=== PATIENT | female | born 1960 | race Caucasian/White ===

== ENCOUNTER 2024-06-03 12:10 | Inpatient (IN) | payer MEDICARE, OTHER ==
[~2024-06-03] VITALS: Ht 167.6 cm; Wt 89.9 kg
[2024-06-03] VITALS (14 sets, daily range): BP systolic 130–158; BP diastolic 59–96; PULSE 79–86; RESP 10–20; TEMP 97.5–98; O2SAT 93–100
[2024-06-03 13:07] LABS: BASOPHILS % (AUTO) 0.5 % (0-1); EOSINOPHILS # (AUTO) 0.4 X10'3 (0-0.9); EOSINOPHILS % (AUTO) 4.1 % (0-6); HEMATOCRIT 40.3 % (35.0-45.0); HEMOGLOBIN 13.6 g/dl (12.0-16.0); LYMPHOCYTES # (AUTO) 1.3 X10'3 (1.1-4.8); MEAN CORPUSCULAR HEMOGLOBIN 31.7 PG (27.0-31.0); MEAN CORPUSCULAR HGB CONC 33.8 g/dL (33.0-36.5); MEAN CORPUSCULAR VOLUME 93.9 FL (78-98); MEAN PLATELET VOLUME 8.2 FL (7.4-10.4); MONOCYTES # (AUTO) 0.8 X10'3 (0-0.9); MONOCYTES % (AUTO) 9.4 % (2-12); NEUTROPHILS # (AUTO) 6.3 X10'3 (1.8-7.7); PLATELET COUNT 288 X10'3 (140-440); WHITE BLOOD COUNT 8.9 X10'3 (4.5-11.0)
[2024-06-03 13:18] LABS: PROTHROMBIN TIME 10.6 SECONDS (9.0-12.0)
[2024-06-03 13:23] LABS: ALBUMIN 3.2 G/DL (3.4-5.0); ANION GAP 9 (8-16); BLOOD UREA NITROGEN 13 MG/DL (7-18); CHLORIDE 106 MMOL/L (99-107); CHOL/HDL RATIO 3.6 (0.00-4.99); CHOLESTEROL 226 MG/DL (0-200); CREATININE 0.93 MG/DL (0.40-0.90); GLUCOSE 89 MG/DL (70-104); HDL CHOLESTEROL 63 MG/DL (35-60); LDL CHOLESTEROL 145 MG/DL (50-100); SODIUM 141 MMOL/L (135-145); TOTAL CARBON DIOXIDE 26.4 MMOL/L (24-32); TRIGLYCERIDES 68 MG/DL (20-135); eCRCL 57 ML/MIN; eGFR 61 ML/MIN
[2024-06-03] MEDS ORDERED: SERT-433 PO (13:57)
[2024-06-03] MEDS ORDERED: OMEG1CAP46 PO (13:57)
[2024-06-03] MEDS ORDERED: TOP100T PO (13:57)
[2024-06-03] MEDS ORDERED: AMLO-140 PO (13:57)
[2024-06-03] MEDS ORDERED: GABA-530 PO (13:57)
[2024-06-03] MEDS ORDERED: MELA5CAP PO (13:57)
[2024-06-03] MEDS ORDERED: NORT50CA PO (13:57)
[2024-06-03] MEDS ORDERED: ZOLP6.2547 PO (13:57)
[2024-06-03] MEDS ORDERED: MULT-1133 PO (13:57)
[2024-06-03] MEDS ORDERED: CETI-194 PO (13:57)
[2024-06-03] MEDS ORDERED: UBID100C16 PO (13:57)
[2024-06-03] MEDS ORDERED: THYR30TA2 PO (13:57)
[2024-06-03] MEDS ORDERED: ROSU10TA72 PO (13:57)
[2024-06-03] MEDS ORDERED: GLUC500T12 PO (13:57)
[2024-06-03] MEDS ORDERED: iohexol 350MG/ML 100ml bottle IV ONE ×2 (14:01→14:43)
[2024-06-03] MEDS ORDERED: heparin 1,000unit/ml 10ml vial 10 ML ONE (14:01)
[2024-06-03] MEDS ORDERED: fentaNYL/PF 50MCG/1 ML 2ML syringe ONE (14:01)
[2024-06-03] MEDS ORDERED: verapamil 2.5 mg/ml inj IV ONE (14:01)
[2024-06-03] MEDS ORDERED: LIDOcaine 1% (10mg/ml) 2ml vial ONE (14:01)
[2024-06-03] MEDS ORDERED: midazolam 1 mg/ML 2ml injection ONE (14:01)
[2024-06-03] MEDS: LORazepam 0.5 MG tablet PO PRN (14:04)
[2024-06-03] MEDS: normal saline 1,000 ML IV SCH (14:04)
[2024-06-03] MEDS: diphenhydrAMINE 25mg capsule PO PRN (14:04)
[2024-06-03] MEDS: potassium chloride 10mEq ER tablet PO SCH (14:06)
[2024-06-03] MEDS ORDERED: nitroGLYCERIN 500mcg/5mL D5W 5 ML IV ONE (14:09)
[2024-06-03] MEDS ORDERED: OXAZEpam 15mg capsule PO PRN (15:35)
[2024-06-03] MEDS ORDERED: proCHLORperazine 10 MG/2 ml inj IV PRN (15:35)
[2024-06-03] MEDS ORDERED: ondansetron/PF 4mg/2ml inj IV PRN (15:35)
[2024-06-03] MEDS ORDERED: potassium Cl 20mEq/100mL bag 100 ML IV PRN (16:35)
[2024-06-03] MEDS ORDERED: ondansetron 4mg rapidly disintigrating tab PO PRN (16:35)
[2024-06-03] MEDS ORDERED: magnesium sulf-water 4G/100mL 100 ML IV PRN (16:35)
[2024-06-03] MEDS ORDERED: potassium CL 10mEq/100ml bag 100 ML IV PRN (16:35)
[2024-06-03] MEDS ORDERED: magnesium sulf-water 2g/50mL 50 ML IV PRN (16:35)
[2024-06-03] MEDS ORDERED: diphenhydrAMINE 25mg capsule PO PRN (16:35)
[2024-06-03] MEDS ORDERED: potassium Cl 40MEQ/270ML bag 250 ML IV PRN (16:35)
[2024-06-03] MEDS ORDERED: potassium Cl 20 mEq SR tablet PO PRN (16:35)
[2024-06-03] MEDS ORDERED: potassium Cl 40MEQ/1/2NS 520ml 520 ML IV PRN (16:35)
[2024-06-03 19:01] LABS: HEMOGLOBIN A1C 5.5 % (4.5-6.2)
[2024-06-03] MEDS ORDERED: non-formulary drug (Zolpidem Tartrate 1 TAB) PO PRN (19:55)
[2024-06-03] MEDS ORDERED: topiramate 100mg tablet PO SCH (20:00)
[2024-06-03 20:17] LABS: ABG HCO3 19.3 mmol/L (22.0-26.0); ABG OXYGEN SATURATION 96.7 % (92-98.5); ABG PCO2 (T) 30.6 mmHg (32.0-45.0); ABG PH (T) 7.418 (7.350-7.450); ABG PO2 (T) 84.9 mmHg (75.0-100.0); ALLEN'S TEST Modified; FCOHb 0.7 % (0.5-1.5); FHHb 3.3 % (0.0-5.0); FMetHb 0.3 % (0.0-1.5); FO2Hb 95.7 % (94-97); MODE ROOM AIR; TOTAL HEMOGLOBIN 13.9 G/dl (12.0-16.0)
[2024-06-03] MEDS ORDERED: non-formulary drug (Melatonin 1 CAP) PO SCH (21:00)
[2024-06-03] MEDS ORDERED: NORTRIPTYLINE HCL PO SCH (21:00)
[2024-06-03 21:18] LABS: APTT 26 SECONDS (22-32); PROTHROMBIN TIME 10.3 SECONDS (9.0-12.0)
[2024-06-03 21:26] LABS: BILIRUBIN,URINE NEGATIVE (Neg); CLARITY,URINE SLIGHTLY CLOUDY (Clear); COLOR,URINE YELLOW (Yellow); GLUCOSE, URINE NEGATIVE (Neg); KETONES,URINE NEGATIVE (Neg); LEUKOCYTE ESTERASE ,URINE NEGATIVE (Neg); NITRITES, URINE NEGATIVE (Neg); OCCULT BLOOD,URINE SMALL (Neg); PROTEIN,URINE NEGATIVE (Neg); UROBILINOGEN,URINE 0.2 E.U/dL (0.2-1.0)
[2024-06-03 21:30] LABS: UA COLLECTION TYPE NON-SPECIFIED
[2024-06-03 21:31] LABS: SQUAMOUS EPITHELIAL CELL,UR MODERATE /LPF (FEW)
[2024-06-03 21:32] LABS: BACTERIA,URINE FEW /HPF (Neg); TRANSITIONAL EPI CELLS,URINE FEW /HPF
[2024-06-03 21:33] LABS: WBC,URINE 0-4 /HPF (0-4)
[2024-06-03] MEDS: atorvastatin 20mg tablet PO SCH (23:22)
[2024-06-03] MEDS: mupirocin 2% nasal ointment 1gm UD NS SCH (23:22)
[2024-06-03] MEDS: sod chloride 0.9% 10ml flush syringe IV SCH (23:29)
[2024-06-03] MEDS: MESSAGE TO NURSING PO ONE (23:29)
[2024-06-04] VITALS (21 sets, daily range): BP systolic 98–158; BP diastolic 52–78; PULSE 80–93; RESP 14–30; TEMP 98; O2SAT 92–100
[2024-06-04] MEDS ORDERED: gabapentin 100mg capsule PO SCH
[2024-06-04] MEDS ORDERED: dextrose 50%-water 50ml dispensing syringe IV PRN ×2 (05:35→16:15)
[2024-06-04] MEDS ORDERED: insulin glargine (Lantus) pen - multi-dose SQ PRN ×2 (05:35→16:15)
[2024-06-04] MEDS ORDERED: Insulin Reg/NS 100units/100mL 100 ML IV SCH (05:35)
[2024-06-04] MEDS: cefazolin 2gm/D5W 100mL 100 ML IV ONE (05:38)
[2024-06-04] MEDS: ceFAZolin 1000mg inj ONE (06:13)
[2024-06-04] MEDS: heparin 10,000 units/1 ML INJ ONE (06:14)
[2024-06-04] MEDS: BUPIVAcaine/PF 2.5mg/ml (0.25%) 10ml vial ONE (06:14)
[2024-06-04] MEDS: BUPIVACAINE liposomal/PF 13.3 MG/ML vial IM ONE (06:14)
[2024-06-04 06:21] LABS: BASOPHILS # (AUTO) 0.1 X10'3 (0-0.2); BASOPHILS % (AUTO) 0.7 % (0-1); EOSINOPHILS # (AUTO) 0.4 X10'3 (0-0.9); EOSINOPHILS % (AUTO) 4.3 % (0-6); HEMATOCRIT 40.1 % (35.0-45.0); HEMOGLOBIN 13.4 g/dl (12.0-16.0); LYMPHOCYTES # (AUTO) 1.8 X10'3 (1.1-4.8); LYMPHOCYTES % (AUTO) 19.3 % (21-51); MEAN CORPUSCULAR HEMOGLOBIN 31.4 PG (27.0-31.0); MEAN CORPUSCULAR HGB CONC 33.3 g/dL (33.0-36.5); MEAN CORPUSCULAR VOLUME 94.3 FL (78-98); MEAN PLATELET VOLUME 8.2 FL (7.4-10.4); MONOCYTES # (AUTO) 0.8 X10'3 (0-0.9); NEUTROPHILS # (AUTO) 6.1 X10'3 (1.8-7.7); NEUTROPHILS % (AUTO) 66.7 % (42-75); PLATELET COUNT 272 X10'3 (140-440); RED BLOOD COUNT 4.25 X10'6 (4.20-5.60); WHITE BLOOD COUNT 9.2 X10'3 (4.5-11.0)
[2024-06-04 06:26] LABS: ALBUMIN 3.1 G/DL (3.4-5.0); ANION GAP 12 (8-16); BLOOD UREA NITROGEN 12 MG/DL (7-18); CALCIUM 8.7 MG/DL (8.5-10.1); CHLORIDE 107 MMOL/L (99-107); GLUCOSE 94 MG/DL (70-104); POTASSIUM 3.1 MMOL/L (3.5-5.1); SODIUM 141 MMOL/L (135-145); TOTAL CARBON DIOXIDE 21.7 MMOL/L (24-32); eCRCL 67 ML/MIN; eGFR 72 ML/MIN
[2024-06-04 07:23] LABS: PROTHROMBIN TIME 10.3 SECONDS (9.0-12.0)
[2024-06-04] MEDS: LORazepam 2 mg/ml vial IV ONE (07:54)
[2024-06-04] MEDS ORDERED: UBIDECARENONE 400 MG PO SCH (08:00)
[2024-06-04] MEDS ORDERED: thyroid, pork 30mg tablet PO SCH (08:00)
[2024-06-04] MEDS: BUPIVAcaine/PF 2.5mg/ml (0.25%) 10ml vial IJ ONE (08:00)
[2024-06-04] MEDS ORDERED: cetirizine 10mg tablet PO SCH (08:00)
[2024-06-04] MEDS ORDERED: LUTEIN PO SCH (08:00)
[2024-06-04] MEDS ORDERED: sertraline 50mg tablet PO SCH (08:00)
[2024-06-04] MEDS ORDERED: [UNRECOGNIZED DRUG - OTHER] PO SCH (08:00)
[2024-06-04] MEDS ORDERED: MULTIVITS MIN PO SCH (08:00)
[2024-06-04] MEDS ORDERED: non-formulary drug (Glucosamine HCl 1 TAB) PO SCH (08:00)
[2024-06-04] MEDS ORDERED: IRON PO SCH (08:00)
[2024-06-04] MEDS ORDERED: OMEGA-3/DHA/EPA/FISH OIL 1 EACH CAPSULE.DR PO SCH (08:00)
[2024-06-04] MEDS ORDERED: non-formulary drug (Amlodipine Besylate/Benazepril 5/40 MG* (Amlodipine-Benazepril 5/40 MG PO SCH (08:00)
[2024-06-04] MEDS ORDERED: potassium Cl 2 mEq/ml inj IV ONE (08:04)
[2024-06-04] MEDS ORDERED: sevoflurane 250ml liquid IH ONE (08:04)
[2024-06-04] MEDS ORDERED: MIDAZolam 1 MG/ML 5ML VIAL ONE (08:05)
[2024-06-04] MEDS ORDERED: SUfentanil 50mcg/ml 1ml amp IV ONE (08:05)
[2024-06-04] MEDS ORDERED: rocuronium 10mg/ml inj IV ONE ×2 (08:10)
[2024-06-04] MEDS ORDERED: propofol inj 20 ML IV ONE (08:10)
[2024-06-04 08:45] LABS: ABG BASE EXCESS -4.3 mmol/L (-2.0-2.0); ABG HCO3 19.4 mmol/L (22.0-26.0); ABG OXYGEN SATURATION 99.1 % (92-98.5); ABG PCO2 31.5 mmHg (35.0-48.0); ABG PH 7.408 (7.350-7.450); CL (ABG) 113 mmol/L (99-107); FCOHb 0.1 % (0.5-1.5); FHHb 0.9 % (0.0-5.0); FMetHb 0.3 % (0.0-1.5); FO2Hb 98.7 % (94-97); GLUCOSE (ABG) 92 mg/dl (70-104); IONIZED CA (ABG) 1.12 mmol/L (1.10-1.30); TOTAL HEMOGLOBIN 12.5 G/dl (12.0-16.0)
[2024-06-04 08:58] LABS: ACT @ 1.70 U 259 SEC (193-297); ACT @ 2.84 U 332 SEC (260-420); BASELINE ACT 133 SEC (101-148); PATIENT WEIGHT 84.0k KG
[2024-06-04] MEDS ORDERED: heparin 1,000unit/ml 10ml vial 10 ML ONE (10:18)
[2024-06-04 10:26] LABS: ABG BASE EXCESS VENOUS -5.5 mmol/L (-2.0 - 2.0); ABG HCO3 VENOUS 20.5 mmol/L (21.0-28.0); ABG OXYGEN SATURATION VENOUS 79.9 % (75 - 99 %); ABG PH (VENOUS) 7.306 (7.310-7.450); ABG PO2 VENOUS 44.8 mmHg (25.0-35.0); CL (ABG) 109 mmol/L (99-107); FCOHb VENOUS 0.4 % (0.0-3.9); FMetHb VENOUS 0.3 % (0.0-0.5); FO2Hb VENOUS 79.3 %; GLUCOSE (ABG) 145 mg/dl (70-104); IONIZED CA (ABG) 1.11 mmol/L (1.10-1.30); TOTAL HEMOGLOBIN 12.1 G/dl (12.0-16.0)
[2024-06-04 11:00] LABS: ABG BASE EXCESS -7.8 mmol/L (-2.0-2.0); ABG HCO3 17.1 mmol/L (22.0-26.0); ABG OXYGEN SATURATION 98.1 % (92-98.5); ABG PH 7.333 (7.350-7.450); ABG PO2 121.9 mmHg (75.0-100.0); CL (ABG) 109 mmol/L (99-107); FHHb 1.9 % (0.0-5.0); FMetHb 0.3 % (0.0-1.5); FO2Hb 97.8 % (94-97); GLUCOSE (ABG) 167 mg/dl (70-104); IONIZED CA (ABG) 1.09 mmol/L (1.10-1.30); TOTAL HEMOGLOBIN 11.3 G/dl (12.0-16.0)
[2024-06-04 11:30] LABS: ABG BASE EXCESS VENOUS -8.4 mmol/L (-2.0 - 2.0); ABG HCO3 VENOUS 18.5 mmol/L (21.0-28.0); ABG OXYGEN SATURATION VENOUS 81.5 % (75 - 99 %); ABG PCO2 VENOUS 43.6 mmHg (41.0-54.0); ABG PH (VENOUS) 7.246 (7.310-7.450); ABG PO2 VENOUS 49.4 mmHg (25.0-35.0); CL (ABG) 110 mmol/L (99-107); FCOHb VENOUS 0.4 % (0.0-3.9); FHHb VENOUS 18.4 %; FMetHb VENOUS 0.3 % (0.0-0.5); FO2Hb VENOUS 80.9 %; GLUCOSE (ABG) 190 mg/dl (70-104); IONIZED CA (ABG) 1.08 mmol/L (1.10-1.30); TOTAL HEMOGLOBIN 11.6 G/dl (12.0-16.0)
[2024-06-04] MEDS ORDERED: albumin (Human) 5% 250ml 750 ML IV ONE (11:30)
[2024-06-04] MEDS ORDERED: sodium bicarbonate (8.4%) inj. 1 MEQ/ML ML ONE (11:30)
[2024-06-04] MEDS ORDERED: albumin (Human) 5% 250ml 250 ML IV ONE ×2 (11:33→15:18)
[2024-06-04 12:41] LABS: ABG HCO3 22.3 mmol/L (22.0-26.0); ABG OXYGEN SATURATION 99.4 % (92-98.5); ABG PH 7.353 (7.350-7.450); ABG PO2 446.8 mmHg (75.0-100.0); CL (ABG) 109 mmol/L (99-107); FHHb 0.6 % (0.0-5.0); FMetHb 0.3 % (0.0-1.5); FO2Hb 98.1 % (94-97); GLUCOSE (ABG) 158 mg/dl (70-104); IONIZED CA (ABG) 0.91 mmol/L (1.10-1.30); K (ABG) 3.8 mmol/L (3.5-5.1)
[2024-06-04 13:22] LABS: ABG BASE EXCESS VENOUS -5.1 mmol/L (-2.0 - 2.0); ABG HCO3 VENOUS 21.6 mmol/L (21.0-28.0); ABG OXYGEN SATURATION VENOUS 87.4 % (75 - 99 %); ABG PCO2 VENOUS 48.3 mmHg (41.0-54.0); ABG PH (VENOUS) 7.268 (7.310-7.450); ABG PO2 VENOUS 59.1 mmHg (25.0-35.0); CL (ABG) 109 mmol/L (99-107); FCOHb VENOUS 0.4 % (0.0-3.9); FHHb VENOUS 12.5 %; FMetHb VENOUS 0.3 % (0.0-0.5); FO2Hb VENOUS 86.8 %; GLUCOSE (ABG) 172 mg/dl (70-104); IONIZED CA (ABG) 0.95 mmol/L (1.10-1.30); TOTAL HEMOGLOBIN 7.6 G/dl (12.0-16.0)
[2024-06-04 13:53] LABS: ABG HCO3 21.4 mmol/L (22.0-26.0); ABG OXYGEN SATURATION 99.2 % (92-98.5); ABG PCO2 40.6 mmHg (35.0-48.0); ABG PO2 463.5 mmHg (75.0-100.0); CL (ABG) 110 mmol/L (99-107); FCOHb 0.2 % (0.5-1.5); FHHb 0.8 % (0.0-5.0); FMetHb 0.3 % (0.0-1.5); FO2Hb 98.7 % (94-97); GLUCOSE (ABG) 174 mg/dl (70-104); TOTAL HEMOGLOBIN 7.1 G/dl (12.0-16.0)
[2024-06-04] MEDS: MESSAGE TO NURSING PO ONE ×3 (14:00→14:02)
[2024-06-04] MEDS: MESSAGE TO PHARMACY IJ ONE (14:01)
[2024-06-04] MEDS ORDERED: ceFAZolin 1000mg inj ONE ×2 (14:01)
[2024-06-04 14:20] LABS: ABG BASE EXCESS -5.3 mmol/L (-2.0-2.0); ABG HCO3 19.8 mmol/L (22.0-26.0); ABG OXYGEN SATURATION 99.2 % (92-98.5); ABG PCO2 36.8 mmHg (35.0-48.0); ABG PH 7.349 (7.350-7.450); ABG PO2 386.3 mmHg (75.0-100.0); CL (ABG) 107 mmol/L (99-107); FCOHb 0.8 % (0.5-1.5); FHHb 0.8 % (0.0-5.0); FMetHb 0.3 % (0.0-1.5); FO2Hb 98.1 % (94-97); GLUCOSE (ABG) 170 mg/dl (70-104); IONIZED CA (ABG) 1.24 mmol/L (1.10-1.30); K (ABG) 3.4 mmol/L (3.5-5.1)
[2024-06-04 15:07] LABS: ABG BASE EXCESS -6.3 mmol/L (-2.0-2.0); ABG OXYGEN SATURATION 98.2 % (92-98.5); ABG PCO2 37.1 mmHg (35.0-48.0); ABG PH 7.328 (7.350-7.450); ABG PO2 149.4 mmHg (75.0-100.0); CL (ABG) 112 mmol/L (99-107); FCOHb 0.1 % (0.5-1.5); FHHb 1.8 % (0.0-5.0); FMetHb 0.3 % (0.0-1.5); FO2Hb 97.8 % (94-97); GLUCOSE (ABG) 138 mg/dl (70-104); K (ABG) 3.5 mmol/L (3.5-5.1); TOTAL HEMOGLOBIN 8.6 G/dl (12.0-16.0)
[2024-06-04 15:10] LABS: ACTIVATED CLOTTING TIME 107 SEC (101-148)
[2024-06-04] MEDS ORDERED: mineral oil 133ml enema RC PRN (16:15)
[2024-06-04] MEDS ORDERED: sodium phosphate inj. 30 MMOL in dextrose 5%-water 250 ML IV PRN (16:15)
[2024-06-04] MEDS ORDERED: albumin (Human) 5% 250ml 250 ML IV PRN (16:15)
[2024-06-04] MEDS ORDERED: metoclopramide 5 mg/ml inj IV PRN (16:15)
[2024-06-04] MEDS ORDERED: niCARDipine-NS 40mg/200ml IVPB 200 ML IV PRN (16:15)
[2024-06-04] MEDS ORDERED: normal saline 250ml IV soln 250 ML IV PRN (16:15)
[2024-06-04] MEDS ORDERED: Neutra Phos packet PO PRN (16:15)
[2024-06-04] MEDS ORDERED: potassium Cl 40MEQ/270ML bag 250 ML IV PRN (16:15)
[2024-06-04] MEDS ORDERED: potassium CL 10mEq/100ml bag 100 ML IV PRN (16:15)
[2024-06-04] MEDS ORDERED: potassium Cl 40MEQ/1/2NS 520ml 520 ML IV PRN (16:15)
[2024-06-04] MEDS ORDERED: bisacodyl 10mg suppository rectal RC PRN (16:15)
[2024-06-04 16:20] LABS: ABG BASE EXCESS -5.1 mmol/L (-2.0-2.0); ABG HCO3 19.9 mmol/L (22.0-26.0); ABG PCO2 (T) 34.4 mmHg (32.0-45.0); ABG PH (T) 7.375 (7.350-7.450); ABG PO2 (T) 251.7 mmHg (75.0-100.0); ALLEN'S TEST POSITIVE; FCOHb 0.1 % (0.5-1.5); FMetHb 0.3 % (0.0-1.5); FO2Hb 98.6 % (94-97); MODE SIMV VC; PATIENT TEMPERATURE 35.5; PEEP 5 cm H2O; RESPIRATORY RATE 14 b/min; TIDAL VOLUME 500 mL; TOTAL HEMOGLOBIN 10.4 G/dl (12.0-16.0)
[2024-06-04 16:31] LABS: BASOPHILS % (AUTO) 0.2 % (0-1); EOSINOPHILS % (AUTO) 0.1 % (0-6); HEMOGLOBIN 9.5 g/dl (12.0-16.0); LYMPHOCYTES # (AUTO) 0.7 X10'3 (1.1-4.8); LYMPHOCYTES % (AUTO) 2.9 % (21-51); MEAN CORPUSCULAR HEMOGLOBIN 30.9 PG (27.0-31.0); MEAN CORPUSCULAR HGB CONC 32.7 g/dL (33.0-36.5); MEAN CORPUSCULAR VOLUME 94.7 FL (78-98); MEAN PLATELET VOLUME 7.9 FL (7.4-10.4); MONOCYTES # (AUTO) 1.5 X10'3 (0-0.9); MONOCYTES % (AUTO) 6.5 % (2-12); NEUTROPHILS # (AUTO) 20.7 X10'3 (1.8-7.7); NEUTROPHILS % (AUTO) 90.3 % (42-75); PLATELET COUNT 124 X10'3 (140-440); RED BLOOD COUNT 3.07 X10'6 (4.20-5.60); RED CELL DISTRIBUTION WIDTH 13.7 % (11.5-14.5); WHITE BLOOD COUNT 22.9 X10'3 (4.5-11.0)
[2024-06-04] MEDS: sodium bicarbonate (8.4%) 1 mEq/ml syringe IV ONE ×2 (16:57→21:29)
[2024-06-04] MEDS: sodium chloride 0.45% 1,000 ML IV SCH (16:58)
[2024-06-04] MEDS: sodium bicarbonate (8.4%) 1 mEq/ml syringe ONE ×2 (16:59→17:00)
[2024-06-04 17:32] LABS: ALANINE AMINOTRANSFERASE 38 U/L (12-78); ALBUMIN 3.6 G/DL (3.4-5.0); ALBUMIN/GLOBULIN RATIO 1.9 (1.1-1.5); ALKALINE PHOSPHATASE 83 IU/L (46-116); ANION GAP 10 (8-16); BLOOD UREA NITROGEN 8 MG/DL (7-18); CALCIUM 8.6 MG/DL (8.5-10.1); CHLORIDE 113 MMOL/L (99-107); CREATININE 0.89 MG/DL (0.40-0.90); GLUCOSE 141 MG/DL (70-104); MAGNESIUM 3.3 MG/DL (1.5-2.4); SODIUM 145 MMOL/L (135-145); TOTAL CARBON DIOXIDE 22.1 MMOL/L (24-32); TOTAL PROTEIN 5.5 G/DL (6.4-8.2); eCRCL 60 ML/MIN; eGFR 64 ML/MIN
[2024-06-04 17:33] LABS: ASPARTATE AMINO TRANSFERASE 76 U/L (10-37); PHOSPHORUS 1.6 MG/DL (2.3-4.5); POTASSIUM 3.6 MMOL/L (3.5-5.1)
[2024-06-04 17:47] LABS: APTT 29 SECONDS (22-32); INR 1.2 INR; PROTHROMBIN TIME 12.3 SECONDS (9.0-12.0)
[2024-06-04] MEDS: potassium Cl 20mEq/100mL bag 100 ML IV PRN (17:52)
[2024-06-04 17:53] LABS: FIBRINOGEN 210 MG/DL (177-424)
[2024-06-04] MEDS: ondansetron/PF 4mg/2ml inj IV PRN (18:20)
[2024-06-04] MEDS: HYDROmorphone inj. 0.5 MG/0.5 ML DISP.SYRIN IV PRN (18:21)
[2024-06-04] MEDS: sodium phosphate inj. 15 MMOL in dextrose 5%-water 250 ML IV PRN (19:22)
[2024-06-04] MEDS: acetaminophen 1,000mg/100ml IV 100 ML IV ONE (19:23)
[2024-06-04] MEDS: sennosides/docusate sodium tablet PO SCH (20:00)
[2024-06-04] MEDS: Insulin Reg/NS 100units/100mL 100 ML IV SCH (20:13)
[2024-06-04] MEDS: mupirocin 2% nasal ointment 1gm UD NS SCH (20:27)
[2024-06-04] MEDS: atorvastatin 10mg tablet PO SCH (20:28)
[2024-06-04 20:38] LABS: ABG BASE EXCESS -4.1 mmol/L (-2.0-2.0); ABG HCO3 21.8 mmol/L (22.0-26.0); ABG OXYGEN SATURATION 93.3 % (92-98.5); ABG PCO2 (T) 41.8 mmHg (32.0-45.0); ABG PH (T) 7.332 (7.350-7.450); ABG PO2 (T) 69.4 mmHg (75.0-100.0); FCOHb 0.5 % (0.5-1.5); FHHb 6.6 % (0.0-5.0); FMetHb 0.3 % (0.0-1.5); FO2Hb 92.6 % (94-97); MODE VENT - CPAP; PATIENT TEMPERATURE 36.3; PEEP 5 cm H2O; TOTAL HEMOGLOBIN 10.1 G/dl (12.0-16.0)
[2024-06-04] MEDS: traMADol 50MG tablet PO PRN (21:29)
[2024-06-04 22:27] LABS: BASOPHILS % (AUTO) 0 % (0-1); EOSINOPHILS % (AUTO) 0 % (0-6); HEMATOCRIT 29.3 % (35.0-45.0); HEMOGLOBIN 9.6 g/dl (12.0-16.0); LYMPHOCYTES # (AUTO) 0.4 X10'3 (1.1-4.8); MEAN CORPUSCULAR HGB CONC 32.6 g/dL (33.0-36.5); MEAN CORPUSCULAR VOLUME 94.9 FL (78-98); MEAN PLATELET VOLUME 8.2 FL (7.4-10.4); MONOCYTES # (AUTO) 0.8 X10'3 (0-0.9); MONOCYTES % (AUTO) 3.7 % (2-12); NEUTROPHILS # (AUTO) 19.9 X10'3 (1.8-7.7); NEUTROPHILS % (AUTO) 94.3 % (42-75); PLATELET COUNT 126 X10'3 (140-440); RED BLOOD COUNT 3.09 X10'6 (4.20-5.60); WHITE BLOOD COUNT 21.1 X10'3 (4.5-11.0)
[2024-06-04 22:34] LABS: ALBUMIN 3.5 G/DL (3.4-5.0); ANION GAP 10 (8-16); BLOOD UREA NITROGEN 10 MG/DL (7-18); BUN/CREATININE RATIO 9.4 (10.0-20.0); CALCIUM 7.9 MG/DL (8.5-10.1); CHLORIDE 113 MMOL/L (99-107); CREATININE 1.06 MG/DL (0.40-0.90); GLUCOSE 191 MG/DL (70-104); MAGNESIUM 2.6 MG/DL (1.5-2.4); PHOSPHORUS 3.3 MG/DL (2.3-4.5); POTASSIUM 4.2 MMOL/L (3.5-5.1); SODIUM 150 MMOL/L (135-145); TOTAL CARBON DIOXIDE 27.2 MMOL/L (24-32); eCRCL 50 ML/MIN; eGFR 52 ML/MIN
[2024-06-05] VITALS (27 sets, daily range): BP systolic 94–138; BP diastolic 33–63; PULSE 84–97; RESP 12–26; O2SAT 90–96
[2024-06-05] MEDS: cefazolin 2gm/D5W 100mL 100 ML IV SCH (00:34)
[2024-06-05] MEDS: acetaminophen 1,000mg/100ml IV 100 ML IV SCH (02:10)
[2024-06-05 04:25] LABS: BASOPHILS % (AUTO) 0.1 % (0-1); EOSINOPHILS % (AUTO) 0 % (0-6); HEMATOCRIT 28.3 % (35.0-45.0); HEMOGLOBIN 9.3 g/dl (12.0-16.0); LYMPHOCYTES # (AUTO) 0.8 X10'3 (1.1-4.8); LYMPHOCYTES % (AUTO) 3.2 % (21-51); MEAN CORPUSCULAR HEMOGLOBIN 30.9 PG (27.0-31.0); MEAN CORPUSCULAR HGB CONC 32.7 g/dL (33.0-36.5); MEAN CORPUSCULAR VOLUME 94.4 FL (78-98); MEAN PLATELET VOLUME 8.6 FL (7.4-10.4); MONOCYTES # (AUTO) 1.9 X10'3 (0-0.9); MONOCYTES % (AUTO) 7.7 % (2-12); NEUTROPHILS # (AUTO) 21.2 X10'3 (1.8-7.7); PLATELET COUNT 118 X10'3 (140-440); WHITE BLOOD COUNT 23.9 X10'3 (4.5-11.0)
[2024-06-05 04:32] LABS: APTT 24 SECONDS (22-32); PROTHROMBIN TIME 10.9 SECONDS (9.0-12.0)
[2024-06-05 04:34] LABS: ALANINE AMINOTRANSFERASE 75 U/L (12-78); ALBUMIN 3.5 G/DL (3.4-5.0); ALBUMIN/GLOBULIN RATIO 1.7 (1.1-1.5); ALKALINE PHOSPHATASE 98 IU/L (46-116); ANION GAP 5 (8-16); ASPARTATE AMINO TRANSFERASE 200 U/L (10-37); BILIRUBIN,TOTAL 0.6 MG/DL (0.1-1.0); BLOOD UREA NITROGEN 10 MG/DL (7-18); BUN/CREATININE RATIO 12.2 (10.0-20.0); CHLORIDE 113 MMOL/L (99-107); CREATININE 0.82 MG/DL (0.40-0.90); GLUCOSE 129 MG/DL (70-104); MAGNESIUM 2.3 MG/DL (1.5-2.4); PHOSPHORUS 3.4 MG/DL (2.3-4.5); POTASSIUM 4.2 MMOL/L (3.5-5.1); SODIUM 147 MMOL/L (135-145); TOTAL CARBON DIOXIDE 28.6 MMOL/L (24-32); TOTAL PROTEIN 5.6 G/DL (6.4-8.2); eCRCL 65 ML/MIN; eGFR 70 ML/MIN
[2024-06-05] MEDS: magnesium sulf-water 2g/50mL 50 ML IV PRN (05:01)
[2024-06-05] MEDS: aspirin 81mg tab.chew PO SCH (07:02)
[2024-06-05] MEDS: potassium chloride 8mEq ER tablet PO SCH ×2 (12:06→19:25)
[2024-06-05] MEDS: furosemide 20 MG/2 ML vial IV SCH ×2 (12:06→19:25)
[2024-06-05] MEDS: thyroid, pork 30mg tablet PO SCH (12:06)
[2024-06-05] MEDS: albumin (Human) 5% 250ml 250 ML IV ONE (14:00)
[2024-06-05] MEDS: amiodarone 200mg tablet PO SCH (19:25)
[2024-06-05] MEDS: topiramate 100mg tablet PO ONE (19:26)
[2024-06-05] MEDS: Melatonin 3mg tablet PO SCH (21:00)
[2024-06-05] MEDS: nortriptyline 25mg capsule PO SCH (21:25)
[2024-06-05] MEDS: gabapentin 300mg capsule PO SCH (23:04)
[2024-06-06] VITALS (32 sets, daily range): BP systolic 90–112; BP diastolic 36–83; PULSE 84–101; RESP 11–24; O2SAT 86–99
[2024-06-06 02:21] LABS: BASOPHILS % (AUTO) 0.1 % (0-1); EOSINOPHILS % (AUTO) 0.1 % (0-6); HEMATOCRIT 26.3 % (35.0-45.0); HEMOGLOBIN 8.4 g/dl (12.0-16.0); LYMPHOCYTES % (AUTO) 7.8 % (21-51); MEAN CORPUSCULAR HEMOGLOBIN 30.5 PG (27.0-31.0); MEAN CORPUSCULAR HGB CONC 32.1 g/dL (33.0-36.5); MEAN CORPUSCULAR VOLUME 95.1 FL (78-98); MEAN PLATELET VOLUME 8.9 FL (7.4-10.4); MONOCYTES # (AUTO) 1.6 X10'3 (0-0.9); NEUTROPHILS # (AUTO) 22.3 X10'3 (1.8-7.7); PLATELET COUNT 115 X10'3 (140-440); RED BLOOD COUNT 2.77 X10'6 (4.20-5.60); RED CELL DISTRIBUTION WIDTH 14.5 % (11.5-14.5)
[2024-06-06 02:28] LABS: WHITE BLOOD COUNT 25.9 X10'3 (4.5-11.0)
[2024-06-06 02:35] LABS: ALBUMIN 3.2 G/DL (3.4-5.0); ANION GAP 2 (8-16); BLOOD UREA NITROGEN 14 MG/DL (7-18); CALCIUM 8.5 MG/DL (8.5-10.1); CHLORIDE 105 MMOL/L (99-107); GLUCOSE 113 MG/DL (70-104); MAGNESIUM 2.3 MG/DL (1.5-2.4); PHOSPHORUS 3.7 MG/DL (2.3-4.5); POTASSIUM 4.6 MMOL/L (3.5-5.1); SODIUM 138 MMOL/L (135-145); TOTAL CARBON DIOXIDE 30.7 MMOL/L (24-32); eCRCL 53 ML/MIN; eGFR 56 ML/MIN
[2024-06-06 03:05] LABS: TOTAL CELLS COUNTED 100
[2024-06-06 03:06] LABS: PLATELET ESTIMATE DECREASED
[2024-06-06] MEDS: albumin (human) 25% 100 ML IV solution IV ONE (04:34)
[2024-06-06] MEDS: CALCIUM GLUC 1gm/50ml NACL,iso 50 ML IV ONE (04:34)
[2024-06-06] MEDS ORDERED: MESSAGE TO NURSING PO ONE (05:00)
[2024-06-06 05:01] LABS: FREE T4 (FREE THYROXINE) 1.12 NG/DL (0.73-1.40); THYROID STIMULATING HORMONE 0.65 ulU/ml (0.34-4.50)
[2024-06-06] MEDS ORDERED: gabapentin 400mg capsule PO ONE (05:30)
[2024-06-06] MEDS: gabapentin 100mg capsule PO SCH (07:04)
[2024-06-06] MEDS: magnesium hydroxide 30ml (MOM) UD suspension PO PRN (07:04)
[2024-06-06] MEDS: iron polysaccharide complex 150mg capsule PO SCH (07:05)
[2024-06-06] MEDS: pantoprazole 40mg Tablet.DR PO SCH (07:05)
[2024-06-06] MEDS: metoprolol tartrate 12.5mg (1/2 tablet) PO SCH (07:06)
[2024-06-06] MEDS ORDERED: non-formulary drug (Rosuvastatin Calcium 1 TAB) PO SCH (08:00)
[2024-06-06] MEDS: topiramate 100mg tablet PO SCH (08:00)
[2024-06-06] MEDS: acetaminophen 1,000mg/100ml IV 100 ML IV SCH (21:06)
[2024-06-07] VITALS (41 sets, daily range): BP systolic 73–128; BP diastolic 32–88; PULSE 79–104; RESP 12–29; O2SAT 72–96
[2024-06-07 04:00] LABS: BASOPHILS % (AUTO) 0.2 % (0-1); EOSINOPHILS # (AUTO) 0.1 X10'3 (0-0.9); EOSINOPHILS % (AUTO) 0.5 % (0-6); HEMATOCRIT 24.4 % (35.0-45.0); HEMOGLOBIN 7.9 g/dl (12.0-16.0); LYMPHOCYTES # (AUTO) 1.4 X10'3 (1.1-4.8); LYMPHOCYTES % (AUTO) 7.1 % (21-51); MEAN CORPUSCULAR HGB CONC 32.5 g/dL (33.0-36.5); MEAN CORPUSCULAR VOLUME 95.5 FL (78-98); MEAN PLATELET VOLUME 9.3 FL (7.4-10.4); MONOCYTES # (AUTO) 1.1 X10'3 (0-0.9); MONOCYTES % (AUTO) 5.6 % (2-12); NEUTROPHILS % (AUTO) 86.6 % (42-75); PLATELET COUNT 120 X10'3 (140-440); RED BLOOD COUNT 2.55 X10'6 (4.20-5.60); RED CELL DISTRIBUTION WIDTH 14.2 % (11.5-14.5); WHITE BLOOD COUNT 19.7 X10'3 (4.5-11.0)
[2024-06-07 04:14] LABS: ALBUMIN 2.5 G/DL (3.4-5.0); ANION GAP 0 (8-16); BLOOD UREA NITROGEN 16 MG/DL (7-18); BUN/CREATININE RATIO 18.4 (10.0-20.0); CALCIUM 8.1 MG/DL (8.5-10.1); CHLORIDE 105 MMOL/L (99-107); CREATININE 0.87 MG/DL (0.40-0.90); GLUCOSE 116 MG/DL (70-104); MAGNESIUM 2.1 MG/DL (1.5-2.4); PHOSPHORUS 2.7 MG/DL (2.3-4.5); SODIUM 135 MMOL/L (135-145); THYROID STIMULATING HORMONE 0.64 ulU/ml (0.34-4.50); TOTAL CARBON DIOXIDE 29.9 MMOL/L (24-32); eCRCL 61 ML/MIN; eGFR 66 ML/MIN
[2024-06-07 04:17] LABS: POTASSIUM 4.5 MMOL/L (3.5-5.1)
[2024-06-07] MEDS ORDERED: AMLO2.5T5 PO (13:49)
[2024-06-08] VITALS (28 sets, daily range): BP systolic 97–131; BP diastolic 40–88; PULSE 76–99; RESP 13–24; TEMP 97–98.4; O2SAT 94–100
[2024-06-08 03:09] LABS: BASOPHILS % (AUTO) 0.2 % (0-1); EOSINOPHILS # (AUTO) 0.4 X10'3 (0-0.9); EOSINOPHILS % (AUTO) 2.1 % (0-6); HEMATOCRIT 25.9 % (35.0-45.0); HEMOGLOBIN 8.6 g/dl (12.0-16.0); LYMPHOCYTES # (AUTO) 1.4 X10'3 (1.1-4.8); LYMPHOCYTES % (AUTO) 7.9 % (21-51); MEAN CORPUSCULAR HEMOGLOBIN 31.7 PG (27.0-31.0); MEAN CORPUSCULAR HGB CONC 33.2 g/dL (33.0-36.5); MEAN CORPUSCULAR VOLUME 95.5 FL (78-98); MEAN PLATELET VOLUME 8.7 FL (7.4-10.4); MONOCYTES # (AUTO) 0.9 X10'3 (0-0.9); MONOCYTES % (AUTO) 5.2 % (2-12); NEUTROPHILS # (AUTO) 14.5 X10'3 (1.8-7.7); NEUTROPHILS % (AUTO) 84.6 % (42-75); PLATELET COUNT 169 X10'3 (140-440); RED BLOOD COUNT 2.71 X10'6 (4.20-5.60); RED CELL DISTRIBUTION WIDTH 14.1 % (11.5-14.5); WHITE BLOOD COUNT 17.2 X10'3 (4.5-11.0)
[2024-06-08 03:19] LABS: ALBUMIN 2.3 G/DL (3.4-5.0); ANION GAP 5 (8-16); BLOOD UREA NITROGEN 12 MG/DL (7-18); BUN/CREATININE RATIO 15.2 (10.0-20.0); CHLORIDE 105 MMOL/L (99-107); CREATININE 0.79 MG/DL (0.40-0.90); GLUCOSE 120 MG/DL (70-104); MAGNESIUM 1.8 MG/DL (1.5-2.4); PHOSPHORUS 2.6 MG/DL (2.3-4.5); SODIUM 137 MMOL/L (135-145); TOTAL CARBON DIOXIDE 27.2 MMOL/L (24-32); eCRCL 67 ML/MIN; eGFR 73 ML/MIN
[2024-06-08] MEDS: potassium Cl 20 mEq SR tablet PO PRN (03:38)
[2024-06-08] MEDS: magnesium sulf-water 4G/100mL 100 ML IV PRN (03:39)
[2024-06-08] MEDS: JUVEN Smoothie Arginine/Glut./Ca2+Bmb (Juven 19.3pkt) 240ml cup PO SCH (18:15)
[2024-06-08] MEDS ORDERED: dextrose 50%-water 50ml dispensing syringe IV PRN ×2 (20:30)
[2024-06-08] MEDS ORDERED: DEXTROSE 15 GM of carb/4 tabs (each vial/BOTTLE has 4 tablets) PO PRN ×2 (20:30)
[2024-06-08] MEDS ORDERED: glucagon, human recombinant 1mg kit SUBCUT PRN (20:30)
[2024-06-08] MEDS: INSULIN LISPRO 100 UNIT/ML INSULN.PEN MULTI-DOSE SQ SCH (21:00)
[2024-06-09] VITALS (8 sets, daily range): BP systolic 103–124; BP diastolic 40–67; PULSE 87–96; RESP 16–18; TEMP 98–99.3; O2SAT 94–98
[2024-06-09 01:05] LABS: MAGNESIUM 1.9 MG/DL (1.5-2.4); PHOSPHORUS 3.4 MG/DL (2.3-4.5); POTASSIUM 3.9 MMOL/L (3.5-5.1)
[2024-06-09 01:08] LABS: ALANINE AMINOTRANSFERASE 32 U/L (12-78); ALBUMIN 2.4 G/DL (3.4-5.0); ALBUMIN/GLOBULIN RATIO 0.7 (1.1-1.5); ALKALINE PHOSPHATASE 131 IU/L (46-116); ANION GAP 5 (8-16); ASPARTATE AMINO TRANSFERASE 72 U/L (10-37); BILIRUBIN,TOTAL 0.4 MG/DL (0.1-1.0); BLOOD UREA NITROGEN 16 MG/DL (7-18); BUN/CREATININE RATIO 19.3 (10.0-20.0); CALCIUM 8.4 MG/DL (8.5-10.1); CHLORIDE 105 MMOL/L (99-107); CREATININE 0.83 MG/DL (0.40-0.90); GLUCOSE 100 MG/DL (70-104); POTASSIUM 3.9 MMOL/L (3.5-5.1); SODIUM 136 MMOL/L (135-145); eCRCL 64 ML/MIN; eGFR 69 ML/MIN
[2024-06-09 06:00] LABS: RED BLOOD COUNT 2.94 X10'6 (3.60-4.90); WHITE BLOOD COUNT 12.7 X10'3 (4.5-11.0)
[2024-06-09 06:01] LABS: BASOPHILS % 0 % (0-2); EOSINOPHILS % (AUTO) 3 % (0-6); HEMOGLOBIN 9.4 G/DL (11.5-16.0); LYMPHOCYTES # (AUTO) 1.4 X10'3 (1.1-4.8); LYMPHOCYTES % 11 % (24-44); MEAN CORPUSCULAR HGB CONC 33.6 % (32-36); MEAN CORPUSCULAR VOLUME 95.3 FL (81-97); MONOCYTES % 10 % (0-12); NEUTROPHILS # (AUTO) 9.7 X10'3 (1.8-7.7); PLATELET COUNT 243 X10'3 (130-400); RED CELL DISTRIBUTION WIDTH 14.1 % (11-16); SEGMENTED NEUTROPHILS % 76 % (36-66)
[2024-06-09 06:02] LABS: EOSINOPHILS # (AUTO) 0.4 X10'3 (0-0.9); MONOCYTES # (AUTO) 1.3 X10'3 (0-0.9)
[2024-06-09 09:48] LABS: K (ABG) 2.7 mmol/L (3.5-5.1)
[2024-06-09 09:49] LABS: TOTAL HEMOGLOBIN 6.5 G/dl (12.0-16.0)
[2024-06-09 09:49] LABS: K (ABG) 2.8 mmol/L (3.5-5.1)
[2024-06-09 09:50] LABS: K (ABG) 2.6 mmol/L (3.5-5.1)
[2024-06-09 09:50] LABS: TOTAL HEMOGLOBIN 6.6 G/dl (12.0-16.0)
[2024-06-09] MEDS: JUVEN Shake w/Arg/Glut/Ca2+Bmb (Juven 19.3gm) pkt 240ml PO SCH (17:30)
[2024-06-10] VITALS (12 sets, daily range): BP systolic 97–122; BP diastolic 41–59; PULSE 49–104; RESP 14–19; TEMP 97–97.8; O2SAT 96–99
[2024-06-10 06:06] LABS: BASOPHILS % (AUTO) 0.3 % (0-1); EOSINOPHILS # (AUTO) 0.5 X10'3 (0-0.9); EOSINOPHILS % (AUTO) 3.5 % (0-6); HEMATOCRIT 30.6 % (35.0-45.0); HEMOGLOBIN 10.2 g/dl (12.0-16.0); LYMPHOCYTES # (AUTO) 1.7 X10'3 (1.1-4.8); LYMPHOCYTES % (AUTO) 11.6 % (21-51); MEAN CORPUSCULAR HEMOGLOBIN 31.7 PG (27.0-31.0); MEAN CORPUSCULAR HGB CONC 33.2 g/dL (33.0-36.5); MEAN CORPUSCULAR VOLUME 95.3 FL (78-98); MEAN PLATELET VOLUME 7.5 FL (7.4-10.4); MONOCYTES # (AUTO) 1.4 X10'3 (0-0.9); MONOCYTES % (AUTO) 9.5 % (2-12); NEUTROPHILS # (AUTO) 10.8 X10'3 (1.8-7.7); NEUTROPHILS % (AUTO) 75.1 % (42-75); PLATELET COUNT 319 X10'3 (140-440); RED BLOOD COUNT 3.21 X10'6 (4.20-5.60); RED CELL DISTRIBUTION WIDTH 14.1 % (11.5-14.5); WHITE BLOOD COUNT 14.4 X10'3 (4.5-11.0)
[2024-06-10 06:28] LABS: ALBUMIN 2.6 G/DL (3.4-5.0); ANION GAP 12 (8-16); BLOOD UREA NITROGEN 10 MG/DL (7-18); BUN/CREATININE RATIO 11.8 (10.0-20.0); CHLORIDE 103 MMOL/L (99-107); CREATININE 0.85 MG/DL (0.40-0.90); GLUCOSE 90 MG/DL (70-104); MAGNESIUM 1.6 MG/DL (1.5-2.4); PHOSPHORUS 4.9 MG/DL (2.3-4.5); POTASSIUM 3.2 MMOL/L (3.5-5.1); SODIUM 139 MMOL/L (135-145); eCRCL 63 ML/MIN; eGFR 67 ML/MIN
[2024-06-10] MEDS ORDERED: levoFLOXACIN-Levaquin 750MG/D5 150 ML IV SCH (14:25)
[2024-06-10] MEDS: Melatonin 3mg tablet PO ONE (23:01)
[2024-06-11] VITALS (8 sets, daily range): BP systolic 97–117; BP diastolic 42–72; PULSE 72–105; RESP 14–20; TEMP 97.7–98.4; O2SAT 92–100
[2024-06-11 05:55] LABS: ALBUMIN 2.4 G/DL (3.4-5.0); ANION GAP 11 (8-16); BLOOD UREA NITROGEN 12 MG/DL (7-18); BUN/CREATININE RATIO 15.8 (10.0-20.0); CHLORIDE 106 MMOL/L (99-107); CREATININE 0.76 MG/DL (0.40-0.90); GLUCOSE 97 MG/DL (70-104); MAGNESIUM 1.8 MG/DL (1.5-2.4); PHOSPHORUS 5.3 MG/DL (2.3-4.5); POTASSIUM 3.8 MMOL/L (3.5-5.1); SODIUM 139 MMOL/L (135-145); TOTAL CARBON DIOXIDE 21.9 MMOL/L (24-32); eCRCL 70 ML/MIN; eGFR 77 ML/MIN
[2024-06-11 05:56] LABS: BASOPHILS # (AUTO) 0.1 X10'3 (0-0.2); BASOPHILS % (AUTO) 0.5 % (0-1); EOSINOPHILS # (AUTO) 0.4 X10'3 (0-0.9); EOSINOPHILS % (AUTO) 2.9 % (0-6); HEMATOCRIT 27.8 % (35.0-45.0); HEMOGLOBIN 9.1 g/dl (12.0-16.0); LYMPHOCYTES # (AUTO) 1.6 X10'3 (1.1-4.8); LYMPHOCYTES % (AUTO) 10.5 % (21-51); MEAN CORPUSCULAR HEMOGLOBIN 31.1 PG (27.0-31.0); MEAN CORPUSCULAR HGB CONC 32.7 g/dL (33.0-36.5); MEAN PLATELET VOLUME 7.5 FL (7.4-10.4); MONOCYTES # (AUTO) 1.5 X10'3 (0-0.9); MONOCYTES % (AUTO) 9.3 % (2-12); NEUTROPHILS # (AUTO) 11.9 X10'3 (1.8-7.7); NEUTROPHILS % (AUTO) 76.8 % (42-75); PLATELET COUNT 360 X10'3 (140-440); RED BLOOD COUNT 2.93 X10'6 (4.20-5.60); RED CELL DISTRIBUTION WIDTH 14.4 % (11.5-14.5); WHITE BLOOD COUNT 15.5 X10'3 (4.5-11.0)
[2024-06-11] MEDS: furosemide 40mg tablet PO SCH (08:39)
[2024-06-11] MEDS ORDERED: ASPI81TA53 PO (09:42)
[2024-06-11] MEDS ORDERED: LOP12.5T PO ×2 (09:42→09:53)
[2024-06-11] MEDS ORDERED: AMIO200T67 PO (09:42)
[2024-06-11] MEDS ORDERED: TRAM50TA2 PO (09:42)
[2024-06-11] MEDS ORDERED: piperacillin/tazo 3.375gm/50ml 50 ML IV SCH (16:00)
[2024-06-11] MEDS: levoFLOXACIN-Levaquin 750MG/D5 150 ML IV SCH (16:56)
[2024-06-12 02:00] VITALS: BP 103/47; PULSE 95; RESP 19; TEMP 97.6; O2SAT 94
[2024-06-12 07:51] LABS: ALBUMIN 2.4 G/DL (3.4-5.0); ANION GAP 10 (8-16); BLOOD UREA NITROGEN 11 MG/DL (7-18); BUN/CREATININE RATIO 13.8 (10.0-20.0); CALCIUM 8.8 MG/DL (8.5-10.1); CHLORIDE 106 MMOL/L (99-107); GLUCOSE 95 MG/DL (70-104); SODIUM 136 MMOL/L (135-145); TOTAL CARBON DIOXIDE 20.3 MMOL/L (24-32); eCRCL 67 ML/MIN; eGFR 72 ML/MIN
[2024-06-12 07:59] VITALS: PULSE 94; RESP 16; O2SAT 96
[2024-06-12 08:00] VITALS: BP_SYST 104; RESP 14; O2SAT 98
[2024-06-12 08:04] VITALS: PULSE 72; RESP 18
[2024-06-12 08:51] LABS: BASOPHILS % (AUTO) 0.3 % (0-1); EOSINOPHILS # (AUTO) 0.4 X10'3 (0-0.9); EOSINOPHILS % (AUTO) 2.8 % (0-6); HEMATOCRIT 27.8 % (35.0-45.0); LYMPHOCYTES # (AUTO) 1.7 X10'3 (1.1-4.8); LYMPHOCYTES % (AUTO) 13.1 % (21-51); MEAN CORPUSCULAR HEMOGLOBIN 30.8 PG (27.0-31.0); MEAN CORPUSCULAR HGB CONC 32.4 g/dL (33.0-36.5); MEAN PLATELET VOLUME 7.2 FL (7.4-10.4); MONOCYTES # (AUTO) 1.3 X10'3 (0-0.9); MONOCYTES % (AUTO) 9.6 % (2-12); NEUTROPHILS # (AUTO) 9.9 X10'3 (1.8-7.7); NEUTROPHILS % (AUTO) 74.2 % (42-75); PLATELET COUNT 403 X10'3 (140-440); RED BLOOD COUNT 2.93 X10'6 (4.20-5.60); RED CELL DISTRIBUTION WIDTH 14.3 % (11.5-14.5); WHITE BLOOD COUNT 13.3 X10'3 (4.5-11.0)
[2024-06-12] MEDS ORDERED: LEVO750T68 PO (09:46)
[2024-06-12] MEDS: magnesium hydroxide 30ml (MOM) UD suspension PO ONE (10:45)
[2024-06-12] MEDS ORDERED: bacitracin 15gm ointment TP ONE (11:55)
== END 2024-06-12 12:25 | disposition home health service (06) | DRG 219 ==
LOC: SSTAY O 12:10 → PCU 3S 16:44 → CICU 2S 06-04 11:56 → PCU 3S 06-08 14:00
PROVIDERS: ADMIT Thoracic Surgery (Cardiothoracic Vascular Surgery); ATTEND Thoracic Surgery (Cardiothoracic Vascular Surgery)
PROC: 02RF08Z Replacement of Aortic Valve with Zooplastic Tissue, Open Approach (ICD-10-PCS; 2024-06-04)
PROC: 02100Z8 Bypass Coronary Artery, One Artery from Right Internal Mammary, Open Approach (ICD-10-PCS; 2024-06-04)
PROC: 02100Z9 Bypass Coronary Artery, One Artery from Left Internal Mammary, Open Approach (ICD-10-PCS; 2024-06-04)
PROC: 06BQ4ZZ Excision of Left Saphenous Vein, Percutaneous Endoscopic Approach (ICD-10-PCS; 2024-06-04)
PROC: 02UX08Z Supplement Thoracic Aorta, Ascending/Arch with Zooplastic Tissue, Open Approach (ICD-10-PCS; 2024-06-04)
PROC: 5A1221Z Performance of Cardiac Output, Continuous (ICD-10-PCS; 2024-06-04)
PROC: 3E080GC Introduction of Other Therapeutic Substance into Heart, Open Approach (ICD-10-PCS; 2024-06-04)
PROC: 021009W Bypass Coronary Artery, One Artery from Aorta with Autologous Venous Tissue, Open Approach (ICD-10-PCS; principal; 2024-06-04 08:04)
PROC: 5A0935A Assistance with Respiratory Ventilation, Less than 24 Consecutive Hours, High Flow/Velocity Cannula (ICD-10-PCS; 2024-06-06)
PROC: 5A0945A Assistance with Respiratory Ventilation, 24-96 Consecutive Hours, High Flow/Velocity Cannula (ICD-10-PCS; 2024-06-07)
DX: I25.110 Atherosclerotic heart disease of native coronary artery with unstable angina pectoris (principal); J96.01 Acute respiratory failure with hypoxia; I35.0 Nonrheumatic aortic (valve) stenosis; I10 Essential (primary) hypertension; E78.5 Hyperlipidemia, unspecified; Z20.822 Contact with and (suspected) exposure to COVID-19; E03.9 Hypothyroidism, unspecified; G43.909 Migraine, unspecified, not intractable, without status migrainosus; F32.A Depression, unspecified; Z82.49 Family history of ischemic heart disease and other diseases of the circulatory system; Z87.891 Personal history of nicotine dependence; Z88.0 Allergy status to penicillin
CPT/HCPCS: 36415; 36600; 71045; 76376; 80048; 80053; 80061; 81001; 82330; 82435; 82803; 82947; 82948; 83036; 83735; 84100; 84132; 84295; 84439; 84443; 84480; 85007; 85018; 85025; 85347; 85384; 85610; 85730; 86885; 86900; 86901; 86920; 87040; 87070; 87081; 87088; 87811; 88300; 93005; 93306; 93312; 93325; 93458; 93880; 93970; 94002; 94664; 94668; 94760; 97110; 97116; 97161; 97530; 99152; 99153; A4333; A4615; A4618; A4620; A6212; A6213; A6258; A6402; A6446; A6449; A7000; C1751; C1768; C1894; C9290; G0378; J0131; J0610; J0690; J1170; J1250; J1644; J1815; J1940; J1956; J2060; J2150; J2250; J2405; J2440; J2704; J2720; J2919; J3010; J3475; J3480; J3490; J7030; J7040; J7050; J7060; J7120; P9045; P9047; Q0163; Q9967

== ENCOUNTER 2025-05-25 08:12 | Outpatient (CLI) | payer MEDICARE, OTHER ==
[~2025-05-25 08:12] MED LIST: AMIO200T73 PO; ASPI81TA53 PO; CETI-194 PO; GABA-530 PO; GLUC500T12 PO; LOP12.5T PO; MELA5CAP PO; MULT-1133 PO; NORT50CA PO; OMEG1CAP46 PO; ROSU10TA72 PO; SERT-433 PO; THYR30TA2 PO; TOP100T PO; TRAM50TA2 PO; UBID100C16 PO; ZOLP6.2547 PO
--- NOTE | 2025-05-25 12:07 | RADIOLOGY REPORT ---
EXAM: CT CT HEAD INDICATION: MIGRAINE TECHNIQUE: CT of the head without intravenous contrast. Coronal and sagittal reformatted images are s ubmitted. Radiation Dose : 1. Head: CT Dose: CTDI volume is 51.4 mGy. Dose-length product is 863.1 mGy*cm The dose indicators for CT are the volume Computed Tomography (CT) Dose Index (CTDIvol) and the Dose Length Product (DLP), and are measured in units of mGy and mGy-cm, respectively. These indicators are not patient dose, but values generated from the CT scanner acquisition factors. The report includes radiation exposure data for exposures received during this examination. All CT scans at this medical facility are performed using dose modulation techniques as appropriate to a performed exam including the following: Automated exposure control was utilized; adjustment of the MA and/or KV according to patient size; and use of iterative reconstruction technique. COMPARISON: None FINDINGS: There is no evidence of acute intracranial hemorrhage, extra-axial collection, mass effect, midline s hift, herniation or hydrocephalus. The ventricles, sulci and cisterns are age appropriate. The moran-white differentiation is intact. The visualized paranasal sinuses and mastoid air cells are clear. No depressed calvarial fracture. The surrounding soft tissues are unremarkable. IMPRESSION: 1. No evidence of acute intracranial abnormality.
== END 2025-05-25 23:59 | disposition home or self-care (01) ==
LOC: RAD 08:12
PROVIDERS: ATTEND Registered Nurse
DX: R51.9 Headache, unspecified (principal); Z86.69 Personal history of other diseases of the nervous system and sense organs
CPT/HCPCS: 70450